=== PATIENT | female | born 1965 | race Caucasian/White ===

== ENCOUNTER 2017-09-01 19:37 | Emergency (ER) | END 2017-09-01 23:11 | disposition home or self-care (01) ==

== ENCOUNTER 2017-10-08 19:33 | Emergency (ER) | END 2017-10-08 21:59 | disposition home or self-care (01) ==

== ENCOUNTER 2018-01-21 20:41 | Emergency (ER) | END 2018-01-21 22:00 | disposition home or self-care (01) ==

== ENCOUNTER 2018-05-28 21:24 | Emergency (ER) | payer OTHER ==
[~2018-05-28] VITALS: Ht 162.6 cm; Wt 94.1 kg
[~2018-05-28 21:24] MED LIST: CEPH-443 PO; CYCL10TA7 PO; HYDR-4011 PO; MED4DP PO; NAPR-985 PO; SULF1TAB31 PO; TRAM50TA2 PO; TRIA15CR55 TOP
[2018-05-28 21:28] VITALS: Ht 162.6 cm; Wt 94.1 kg
[2018-05-29] MEDS ORDERED: IBUP-1542 PO (01:47)
--- NOTE | 2018-06-10 11:03 | ERD ---
ER Documentation Chief Complaint Chief Complaint right hand/finger numbness x 2 weeks ago; no med hx; has nerve issues HPI Encounter from 05/28/18 52-year-old female with no past medical or surgical history who presents with 2- week complaint of right hand numbness. She denies any history of injury or trauma. States she often does work with her hands frequently. At time of examination patient neurovascular intact able to move all fingers and make a pretty strong fist. He has sensation which is intact to all appropriate nerve distribution of hand. ROS All systems reviewed and are negative except as per history of present illness. Medications Home Meds Active Scripts Ibuprofen* (Motrin*) 600 Mg Tab, 600 MG PO Q6H PRN for PAIN AND OR ELEVATED TEMP, #30 TAB Prov:GABY PATEL PA-C 05/29/18 Methylprednisolone* (Medrol* DOSE PACK) 4 Mg/Dose-Pack Tab.ds.pk, 4 MG PO . DI RECTED, #1 PACKET Prov:ZEUS CHAVEZ PA-C 01/21/18 Cyclobenzaprine Hcl* (Cyclobenzaprine Hcl*) 10 Mg Tablet, 10 MG PO TID, #15 TAB Prov:ZEUS CHAVEZ PA-C 01/21/18 Naproxen* (Naprosyn*) 500 Mg Tablet, 500 MG PO BID PRN for PAIN AND/OR INFLAMMATION, #30 TAB Prov:ZEUS CHAVEZ PA-C 01/21/18 Hydrocodone/Acetaminophen ([place] 5-325 Tablet) 1 Each Tablet, 1 TAB PO Q6H PRN for PAIN, #7 TAB Prov:ZEUS CHAVEZ PA-C 01/21/18 Triamcinolone Acetonide (Triamcinolone Acetonide) 0.1% - 15 Gm Cream.gm., 1 APPLIC TOP BID, #1 TUB Prov:BUDDY ARZOLA SANDING MACHINE OPERATOR OR TENDER 10/08/17 Tramadol HCl (Tramadol HCl) 50 Mg Tablet, 50 MG PO Q6 PRN for PAIN, #20 TAB Prov:LINSEY BRYANT F 09/01/17 Naproxen* (Naprosyn*) 500 Mg Tablet, 500 MG PO BID PRN for MILD PAIN LEVEL 1-3, #30 TAB Prov:LINSEY BRYANT 09/01/17 Cephalexin* (Keflex*) 500 Mg Capsule, 500 MG PO TID for 7 Days, CAP Prov:LINSEY BRYANT 09/01/17 Sulfamethoxazole/Trimethoprim* (Bactrim Ds* Tablet) 1 Each Tablet, 1 TAB PO BID, #14 TAB Prov:LINSEY BRYANT 09/01/17 Allergies Allergies: Coded Allergies: No Known Drug Allergy (Verified Allergy, Unknown, 10/08/17) PMhx/Soc Medical and Surgical Hx: pt denies Medical Hx, pt denies Surgical Hx Hx Alcohol Use: No Hx Substance Use: No Hx Tobacco Use: No Smoking Status: Never smoker FmHx Family History: No diabetes, No coronary disease, No other Physical Exam Physical Exam I have reviewed the triage vital signs. Const: Well nourished, well developed, appears stated age Eyes: PERRL, no conjunctival injection HENT: NCAT, Neck supple without meningismus CV: RRR, Warm, well-perfused extremities RESP: CTAB, Unlabored respiratory effort GI: soft, non-tender, non-distended, no masses MSK: No gross deformities appreciated R hand positive tinnel test Hand - bilateral: Skin: No laceration, or evidence of external trauma Compartments: Soft Sensation: Intact shoulder/pinky/middle finger/thumb web space Bones: Nontender Snuffbox: Nontender Joints: No effusion Wrist: Flex/Ext: Normal Uln/Radial deviation: Normal Pron/Supination Normal Finger: Flex/Ext: Normal Add/abd: Normal Thumb: Flex/Ext: Normal Opposition: Normal Thumbs up: Normal Skin: Warm, dry. No rashes Neuro: grossly non focal Psych: Appropriate mood and affect. Procedures/MDM 52-year-old female who presents with right hand numbness. This likely secondary to mild case of carpal tunnel syndrome given exam findings. I doubt any acute etiology of her symptoms warranting further emergent workup. She has no history of recent trauma or fall. Plan: NSAIDs and appropriate PMD follow-up, instructions on symptom management for carpal tunnel syndrome. DISPOSITION PLAN: We discussed follow up with the patient's primary care doctor within 24 to 48 hours. Patient counseled regarding my diagnostic impression and care plan. Prior to discharge all questions answered. Pt agrees with treatment plan and understands strict return precautions. Precautionary instructions provided including instructions to return to the ER if not improving or for any worsening or changing symptoms or concerns. Departure Diagnosis: Primary Impression: Carpal tunnel syndrome Additional Impression: Pain of hand Condition: Stable Patient Instructions: Carpal Tunnel Syndrome Prevention Tips Referrals: COUNT INCLUDES THE [facility] YOU HAVE RECEIVED A MEDICAL SCREENING EXAM AND THE RESULTS INDICATE THAT YOU DO NOT HAVE A CONDITION THAT REQUIRES URGENT TREATMENT IN THE EMERGENCY DEPARTMENT. FURTHER EVALUATION AND TREATMENT OF YOUR CONDITION CAN WAIT UNTIL YOU ARE SEEN IN YOUR DOCTORS OFFICE WITHIN THE NEXT 1-2 DAYS. IT IS YOUR RESPONSIBILITY TO MAKE AN APPOINTMENT FOR FOLOW-UP CARE. IF YOU HAVE A PRIMARY DOCTOR --you should call your primary doctor and schedule an appointment IF YOU DO NOT HAVE A PRIMARY DOCTOR YOU CAN CALL OUR PHYSICIAN REFERRAL HOTLINE AT IF YOU CAN NOT AFFORD TO SEE A PHYSICIAN YOU CAN CHOSE FROM THE FOLLOWING [facility] [address] [facility]. [facility] [address] [facility] [address] [facility] [address] [facility]. [facility] [address] [facility]. [facility]. [address] Additional Instructions: Call your primary care doctor TOMORROW for an appointment during the next 2-3 days.See the doctor sooner or return here if your condition worsens before your appointment time. GABY PATEL PA-C Jun 10, 2018 11:03
== END 2018-05-29 02:12 | disposition home or self-care (01) ==
LOC: FTE 21:24
DX: G56.01 Carpal tunnel syndrome, right upper limb (principal)
CPT/HCPCS: 29125; Z7610

== ENCOUNTER 2018-08-10 08:54 | Day surgery (SDC) | payer OTHER ==
[~2018-08-10] VITALS: Ht 167.6 cm; Wt 93.4 kg
[~2018-08-10 08:54] MED LIST changes: +IBUP-1542 PO
[2018-08-10 09:40] VITALS: Ht 167.6 cm; Wt 93.4 kg
[2018-08-10 10:46] VITALS: BP 157/75; PULSE 85; RESP 18
[2018-08-10] MEDS ORDERED: PROPOFOL 40 ML ONE (10:56)
[2018-08-10] MEDS ORDERED: LIDOCAINE 2% (SDV) 5 ML INJ ONE (10:56)
--- NOTE | 2018-08-10 10:56 | PREAC ---
Date/Time of Note Date/Time of Note DATE: 08/10/18 TIME: 10:53 Anesthesia Eval and Record Evaluation Time Pre-Procedure Interview DATE: 08/10/18 TIME: 10:53 Age 53 Sex female NPO: 8 hrs Preoperative diagnosis abdominal pain Planned procedure Egd Colonoscopy Past Medical History Past Medical History: Includes Cardio: HTN Surgery & Anesthesia Issues No known issue Meds Anticoagulation: No Beta [place] within 24 hr: No Reason Beta [place] not given: COPD Reported Medications [None] No Conflict Check 08/10/18 Discontinued Scripts Ibuprofen* (Motrin*) 600 Mg Tab, 600 MG PO Q6H PRN for PAIN AND OR ELEVATED TEMP, #30 TAB Prov:GABY PATEL PA-C 05/29/18 Methylprednisolone* (Medrol* DOSE PACK) 4 Mg/Dose-Pack Tab.ds.pk, 4 MG PO . DIRECTED, #1 PACKET Prov:ZEUS CHAVEZ PA-C 01/21/18 Cyclobenzaprine Hcl* (Cyclobenzaprine Hcl*) 10 Mg Tablet, 10 MG PO TID, #15 TAB Prov:ZEUS CHAVEZ PA-C 01/21/18 Naproxen* (Naprosyn*) 500 Mg Tablet, 500 MG PO BID PRN for PAIN AND/OR INFLAMMATION, #30 TAB Prov:ZEUS CHAVEZ PA-C 01/21/18 Hydrocodone/Acetaminophen ([place] 5-325 Tablet) 1 Each Tablet, 1 TAB PO Q6H PRN for PAIN, #7 TAB Prov:ZEUS CHAVEZ PA-C 01/21/18 Triamcinolone Acetonide (Triamcinolone Acetonide) 0.1% - 15 Gm Cream.gm., 1 APPLIC TOP BID, #1 TUB Prov:BUDDY ARZOLA CHEF MANAGER 10/08/17 Tramadol HCl (Tramadol HCl) 50 Mg Tablet, 50 MG PO Q6 PRN for PAIN, #20 TAB Prov:PASILALINSEY SZYMANSKI F 09/01/17 Naproxen* (Naprosyn*) 500 Mg Tablet, 500 MG PO BID PRN for MILD PAIN LEVEL 1-3, #30 TAB Prov:PASILARICHARD SZYMANSKIAR F 09/01/17 Cephalexin* (Keflex*) 500 Mg Capsule, 500 MG PO TID for 7 Days, CAP Prov:LINSEY BRYANT 09/01/17 Sulfamethoxazole/Trimethoprim* (Bactrim Ds* Tablet) 1 Each Tablet, 1 TAB PO BID, #14 TAB Prov:LINSEY BRYANT 09/01/17 Meds reviewed: Yes Allergies Coded Allergies: No Known Drug Allergy (Verified Allergy, Unknown, 10/08/17) Allergies Reviewed: Yes Labs/Studies Labs Reviewed: Reviewed by anesthesiologist test: N/A Pre-procedure Exam Last vitals Vital Signs Date Temp Pulse Resp B/P (MAP) Pulse Ox O2 O2 Flow FiO2 Time Delivery Rate 08/10/18 97.8 85 18 157/75 97 Room Air 10:46 (102) Airway: Adequate mouth opening Mallampati: Mallampati II Teeth: Abnormal (denture) Lung: Normal Heart: Normal ASA Physical Status ASA physical status: 2 Emergency: None Pre-operative Attestations Prior to commencing anesthesia and surgery, the patient was re-evaluated, there was verification of: *The patient's identity *The results of appropriate recent lab work and preoperative vital signs *The above evaluation not changing prior to induction *Anesthetic plan, risk benefits, alternative and complications discussed with patient/family; questions answered; patient/family understands, accepts and wishes to proceed. JAYLIN KENDRICK MD Aug 10, 2018 10:56
[2018-08-10 11:25] VITALS: BP 111/75; PULSE 80; RESP 16
[2018-08-10 11:32] VITALS: BP 138/78; PULSE 67; RESP 16
[2018-08-10 11:37] VITALS: BP 125/74; PULSE 75; RESP 15
[2018-08-10 11:40] VITALS: BP 127/78; PULSE 74; RESP 20
--- NOTE | 2018-08-10 11:40 | PAC ---
Date/Time of Note Date/Time of Note DATE: 08/10/18 TIME: 11:39 Post-Anesthesia Notes Post-Anesthesia Note Last documented vital signs Vital Signs Date Temp Pulse Resp B/P (MAP) Pulse Ox O2 O2 Flow FiO2 Time Delivery Rate 08/10/18 97.8 85 18 157/75 97 Room Air 10:46 (102) Activity: WNL Respiratory function: WNL Cardiovascular function: WNL Mental status: Baseline Pain reasonably controlled: Yes Hydration appropriate: Yes Nausea/Vomiting absent: Yes JAYLIN KENDRICK MD Aug 10, 2018 11:40
[2018-08-10 11:45] VITALS: BP 125/77; PULSE 72; RESP 15
== END 2018-08-10 15:43 | disposition home or self-care (01) ==
LOC: GIL 08:54
PROVIDERS: ATTEND Internal Medicine Gastroenterology
DX: Z12.11 Encounter for screening for malignant neoplasm of colon (principal); K29.50 Unspecified chronic gastritis without bleeding; K64.8 Other hemorrhoids; D12.8 Benign neoplasm of rectum; I10 Essential (primary) hypertension
CPT/HCPCS: 43239; 45380; 88305; 88312; Z7610